=== PATIENT | male | born 1985 ===

== ENCOUNTER 2020-06-15 13:22 | Outpatient (REF) | payer OTHER, SELFPAY ==
[2020-06-15 15:56] LABS: SARS COV2 PCR INHOUSE NEGATIVE (Negative)
== END 2020-06-15 13:23 | disposition home or self-care (01) ==
LOC: HO.LAB 13:22
PROVIDERS: Visit Provider Internal Medicine
DX: Z20.822 Contact with and (suspected) exposure to COVID-19 (principal)
CPT/HCPCS: C9803; U0003

== ENCOUNTER 2020-07-06 08:56 | Outpatient (REF) | payer OTHER, SELFPAY ==
[2020-07-06 09:20] LABS: COVID-19 Test Negative (Negative); IDNOW Serial# 55D5AD1C
== END 2020-07-06 08:57 | disposition home or self-care (01) ==
LOC: HO.LAB 08:56
PROVIDERS: Visit Provider Internal Medicine
DX: Z20.822 Contact with and (suspected) exposure to COVID-19 (principal)
CPT/HCPCS: 36415; 87635; C9803

== ENCOUNTER 2020-07-23 21:03 | Emergency (ER) | payer OTHER, SELFPAY ==
--- NOTE | ~2020-07-23 | CT_ITS ---
EXAMINATION: CT ABDOMEN AND PELVIS WITH CONTRAST CLINICAL INFORMATION: Lower abdominal pain. Bloody stool. COMPARISON: None TECHNIQUE: Multidetector volumetric images were obtained from the superior aspect of the liver through the pubic symphysis following administration 85 mL of Omnipaque 350 intravenous contrast. Sagittal and coronal reformatted images were obtained on the technologist's workstation. Oral contrast: No This CT examination was performed using dose optimization techniques as appropriate, variously including the following: *Automated exposure control *Adjustment of mA and/or kV according to patient size (this includes techniques or standardized protocols for targeted exams where dose is matched to indication/reason for exam; i.e. extremities or head) *Use of iterative reconstruction technique DLP: 529 mGy-cm FINDINGS: LUNG BASES: The visualized lung bases are unremarkable. LIVER, GALLBLADDER, AND BILIARY TREE: The liver is normal in size, shape, and attenuation. There is a 1 cm cyst in segment 5 of the liver. Additional hypoattenuating lesion in segment 4A is too small to fully characterize. No biliary ductal dilatation is present. The gallbladder is contracted with no evidence of radiopaque gallstones, gallbladder wall thickening, or obvious pericholecystic inflammatory changes. PANCREAS: Unremarkable. SPLEEN: Unremarkable. ADRENAL GLANDS: Unremarkable. KIDNEYS AND URETERS: The kidneys are normal in size, shape, and attenuation. No hydronephrosis, hydroureter, or calculi seen. No perinephric stranding. BLADDER: Unremarkable. GASTROINTESTINAL TRACT: The stomach is unremarkable. Normal caliber small bowel. There is no obstruction. Normal appendix. No colonic wall thickening or acute inflammatory change. No significant diverticulosis. No free air. No free fluid. ABDOMINAL WALL: No significant hernia is appreciated. LYMPH NODES: Normal. VASCULAR: Normal caliber aorta. Retroaortic left renal vein. PELVIC VISCERA: The prostate and seminal vesicles are unremarkable. OSSEOUS STRUCTURES: No acute or suspicious osseous abnormality. Bilateral L5 pars defects with grade 2 anterolisthesis of L5 on S1. Vacuum disc phenomenon at this level with disc space narrowing. CT/CT abdomen pelvis w con IMPRESSION: No acute findings of the abdomen or pelvis. No inflammatory changes.
[2020-07-23 21:54] VITALS: BP 114/75; PULSE 64; RESP 16; TEMP 36.4; O2SAT 97; BMI 22.8
[2020-07-23 22:10] VITALS: BP 127/76; PULSE 73; RESP 16; O2SAT 98
[2020-07-23 22:14] LABS: Basophils Absolute Auto 0.1 X10*3/uL (0.0-0.2); Basophils Percent Auto 0.5 % (0-2); Eosinophils Absolute Auto 0.3 X10*3/uL (0.0-0.4); Eosinophils Percent Auto 3.4 % (0-4); Hematocrit 42.2 % (42-52); Hemoglobin 14.6 g/dl (14.0-18.0); Imm Gran Abs Auto 0.02 X10*3/uL (0.00-0.03); Imm Gran Pct Auto 0.2 % (0.0-0.4); Lymphocytes Absolute Auto 3.2 X10*3/uL (1.2-4.9); Lymphocytes Percent Auto 34.5 % (20-40); MANUAL DIFF FLAG NO; Mean Corpuscular HGB Conc 34.6 g/dl (31.0-36.0); Mean Corpuscular Hemoglobin 31.1 pg (27.0-33.0); Mean Platelet Volume 8.6 fL (9.4-12.4); Monocytes Absolute Auto 0.8 X10*3/uL (0.1-1.2); Monocytes Percent Auto 8.6 % (2-11); Neutrophils Absolute Auto 4.9 X10*3/uL (2.0-8.3); Neutrophils Percent Auto 52.8 % (45-73); Platelet Count 246 X10*3/uL (160-400); Red Blood Count 4.69 X10*6/uL (4.60-5.80); Red Cell Distribution Width 13.6 % (11.0-16.0); White Blood Count 9.2 X10*3/uL (4.8-10.8)
--- NOTE | 2020-07-23 22:26 | ED_ITS ---
HPI - Abdominal Pain General Chief Complaint: Abdominal Pain Stated Complaint: Abd Pain Time Seen by Provider: 07/23/20 22:10 Source: patient Mode of arrival: ambulatory Limitations: no limitations History of Present Illness HPI narrative: 35-year-old male who presents emergency department for evaluation of lower abdominal pain x2 weeks. Patient states that he has been having a constant lower abdominal pain, he describes the pain as feeling like ?gas moving ?in his bowels. The pain was initially mild. He states that 2 days prior the pain became severe and is 8/10 at its worst. He states over the past 2 days he has noticed loose diarrheal stools 3 times a day. States that last week he did notice some bright red blood in his bowel movements. The patient's pain was worse today so he went to [facility], he was evaluated and sent to the emergency department for evaluation. The patient states that he had similar symptoms when he was 22 years old and he had a colonoscopy which revealed a polyp and no evidence for inflammatory bowel disease. The patient has not been on antibiotics recently. He has not traveled anywhere recently. He states that he has lost 10-15 lb unintentionally over the past 2 months. The patient did have a fever 2 weeks prior and he states that he was tested for COVID-19 on 07/03/2020 and on 07/11/2020 and these tests were negative. Related Data Home Medications Medication Instructions Recorded Confirmed No Known Home Meds 07/16/20 07/16/20 Allergies Allergy/AdvReac Type Severity Reaction Status Date / Time Sulfa (Sulfonamide Allergy Unknown Hives Verified 07/23/20 21:59 Antibiotics) sulfamethoxazole Allergy Unknown HIVES Verified 07/23/20 21:59 [From BACTRIM] trimethoprim [From BACTRIM] Allergy Unknown HIVES Verified 07/23/20 21:59 Review of Systems Review of Systems Yes all other systems are reviewed and are negative Physical Exam Vital Signs: Vital Signs: Last Vital Signs Temp 97.6 F 07/23/20 21:54 Pulse 73 07/23/20 22:10 Resp 16 07/23/20 22:10 BP 127/76 07/23/20 22:10 Pulse Ox 98 07/23/20 22:10 Body Mass Index 22.8 Const: General: cooperative Nutritional Appearance: thin Orientation/consciousness: oriented to person and oriented to place Limitations: no limitations HENMT: Head: Yes normal to inspection, Yes normocephalic and Yes atraumatic Ears: external ears normal General nose exam: Normal external nose present Face and sinus: Yes normal facial exam Mouth: Normal oral and palatal mucosa present Throat: Yes posterior oropharynx normal Eyes: Periorbital: periorbital findings normal Eyelids: Yes eyelids normal Conjunctivae: conjunctivae normal Sclerae: sclerae normal Corneas: corneas normal Pupils: Equal, round and reactive pupils present Direct Ophthalmoscopy: normal light reflex Neck: Neck: Yes full ROM, Yes no lymphadenopathy, Yes no meningeal signs, Yes trachea midline and Yes supple Chest: Chest palpation & inspection: normal inspection of the chest and normal palpation of entire chest wall Resp: Effort & Inspection: normal respiratory effort and able to speak in complete sentences Auscultation: clear to auscultation bilaterally Cardio: Rate: regular rate Rhythm: regular rhythm Heart sounds: S1 normal heart sound present, S2 normal heart sound present and no murmurs GI: Inspection: Yes normal to inspection Palpation (GI): Soft to palpation, Tenderness to palpation present (GI) in the LLQ (Moderate), in the RLQ (Mild) and suprapubicly (Moderate), no guarding, not rigid and No hepatosplenomegaly present : General: Yes no CVA tenderness Back/Spine/Pelvis: Back: no CVA tenderness Cervical Spine: normal cervical lordosis Thoracic/Lumbar Spine: thoracic and lumbar spine normal to inspection Skin: Lesions: no lesions Rashes: no rashes Wounds: no wounds Neuro: General: oriented to person, oriented to place and no meningeal signs Cranial nerves: Yes CN's II-XII intact bilaterally and Yes Equal, round and reactive pupils present Cognition (Neuro): normal cognition Motor exam (neuro): 5/5 motor strength present throughout Extrem: General: Yes normal to inspection and Yes full ROM Psych: Appearance: well kempt Mental Status: mental status grossly normal Speech and movement: Normal speech and movement present Affect: normal affect Attitude: cooperative Thought process: Normal thought process present Thought content: Normal thought content present Course Course Course Narrative: 35-year-old male who presents emergency department for evaluation of 2 weeks of lower abdominal pain which became worse over the past 2 days. He has had 2 days of diarrheal stools and did have some bloody stool 1 week prior. The patient's physical examination did reveal lower abdominal tenderness greater in the left lower quadrant. Differential includes inflammatory bowel disease, infectious diarrhea, diverticulitis, kidney stone, appendicitis. I ordered a CBC, BMP, liver test, lipase, COVID-19, CT scan of the abdomen pelvis with IV contrast. His pain was treated with Toradol 30 mg IV and he was ordered to get normal saline IV x1 L. 1234: The patient's laboratory evaluation was normal with non elevated ESR and CRP. CT scan of the abdomen pelvis with IV contrast did not reveal a clear etiology for the patient's pain, no evidence of kidney stones or inflammatory bowel disease. The patient does feel better after receiving the above treatment. At this time I do not have a clear etiology for the patient's pain. Patient was advised to take Tylenol and ibuprofen for his pain. She advised to follow-up with his doctor and to return to the emergency department if his symptoms get worse or if he develops any new symptoms that are concerning to him. MDM - Abdominal Pain Lab Data Result diagrams: 07/23/20 22:07 07/23/20 22:07 Labs: Lab Results 07/23/20 07/23/20 07/23/20 Range/Units 22:07 22:07 22:07 WBC 9.2 (4.8-10.8) X10*3/uL RBC 4.69 (4.60-5.80) X10*6/uL Hgb 14.6 (14.0-18.0) g/dl Hct 42.2 (42-52) % MCV 90.0 (80-98) fL MCH 31.1 (27.0-33.0) pg MCHC 34.6 (31.0-36.0) g/dl RDW 13.6 (11.0-16.0) % Plt Count 246 (160-400) X10*3/uL MPV 8.6 L (9.4-12.4) fL Immature Gran % (Auto) 0.2 (0.0-0.4) % Neut % (Auto) 52.8 (45-73) % Lymph % (Auto) 34.5 (20-40) % [place] % (Auto) 8.6 (2-11) % Eos % (Auto) 3.4 (0-4) % Baso % (Auto) 0.5 (0-2) % Lymph # (Auto) 3.2 (1.2-4.9) X10*3/uL [place] # (Auto) 0.8 (0.1-1.2) X10*3/uL Eos # (Auto) 0.3 (0.0-0.4) X10*3/uL Baso # (Auto) 0.1 (0.0-0.2) X10*3/uL Abs Immat Gran (auto) 0.02 (0.00-0.03) X10*3/uL Absolute Neuts (auto) 4.9 (2.0-8.3) X10*3/uL Absolute Nucleated RBC 0.000 (0.0-0.012) X10*3/uL Nucleated RBC % (auto) 0.0 (0.0-0.2) /100WBC ESR (0-15) MM/HR Hold Blue Top SEE NOTE Sodium 138 (135-145) mmol/L Potassium 4.2 (3.3-5.1) mmol/L Chloride 103 (96-108) mmol/L Carbon Dioxide 28 (22-29) mmol/L Anion Gap 11 L (12-20) BUN 25 H (9-16) mg/dL Creatinine 0.96 (0.5-1.4) mg/dL Estim Creat Clear Calc 105.7 Estimated GFR > 60 Random Glucose 90 (60-115) mg/dL Calcium 9.5 (8.4-10.2) mg/dL Total Bilirubin 0.2 (0.0-1.0) mg/dL Direct Bilirubin < 0.2 (0.0-0.5) mg/dL AST 21 (5-37) U/L ALT 21 (0-40) U/L Alkaline Phosphatase 76 (39-117) U/L C-Reactive Protein 0.13 (< or = 0.50) mg/dL Total Protein 6.9 (6.5-8.0) g/dL Albumin 4.4 (3.5-5.0) g/dL Lipase 24 (8-78) U/L COVID-19 (BREANNA) (Negative) COVID-19 Clin Com 07/23/20 07/23/20 Range/Units 22:07 22:40 WBC (4.8-10.8) X10*3/uL RBC (4.60-5.80) X10*6/uL Hgb (14.0-18.0) g/dl Hct (42-52) % MCV (80-98) fL MCH (27.0-33.0) pg MCHC (31.0-36.0) g/dl RDW (11.0-16.0) % Plt Count (160-400) X10*3/uL MPV (9.4-12.4) fL Immature Gran % (Auto) (0.0-0.4) % Neut % (Auto) (45-73) % Lymph % (Auto) (20-40) % [place] % (Auto) (2-11) % Eos % (Auto) (0-4) % Baso % (Auto) (0-2) % Lymph # (Auto) (1.2-4.9) X10*3/uL [place] # (Auto) (0.1-1.2) X10*3/uL Eos # (Auto) (0.0-0.4) X10*3/uL Baso # (Auto) (0.0-0.2) X10*3/uL Abs Immat Gran (auto) (0.00-0.03) X10*3/uL Absolute Neuts (auto) (2.0-8.3) X10*3/uL Absolute Nucleated RBC (0.0-0.012) X10*3/uL Nucleated RBC % (auto) (0.0-0.2) /100WBC ESR 2 (0-15) MM/HR Hold Blue Top Sodium (135-145) mmol/L Potassium (3.3-5.1) mmol/L Chloride (96-108) mmol/L Carbon Dioxide (22-29) mmol/L Anion Gap (12-20) BUN (9-16) mg/dL Creatinine (0.5-1.4) mg/dL Estim Creat Clear Calc Estimated GFR Random Glucose (60-115) mg/dL Calcium (8.4-10.2) mg/dL Total Bilirubin (0.0-1.0) mg/dL Direct Bilirubin (0.0-0.5) mg/dL AST (5-37) U/L ALT (0-40) U/L Alkaline Phosphatase (39-117) U/L C-Reactive Protein (< or = 0.50) mg/dL Total Protein (6.5-8.0) g/dL Albumin (3.5-5.0) g/dL Lipase (8-78) U/L COVID-19 (BREANNA) Negative (Negative) COVID-19 Clin Com See Note Discharge Plan Discharge Clinical Impression: Abdominal pain Qualifiers: Abdominal location: lower abdomen, unspecified Qualified Code(s): R10.30 - Lower abdominal pain, unspecified Patient Disposition: Home, Self-Care Instructions: Abdominal Pain (ED) Additional Instructions: Your laboratory evaluation was normal which is reassuring. The CT scan of your abdomen pelvis with IV contrast did not reveal any abnormal ities to explain your pain, this is reassuring as well. Take ibuprofen 200 mg pills, 3 pills every 6 hours as needed for pain. Take Tylenol (acetaminophen) 500 mg pills, 2 pills every 4 to 6 hours as needed for pain. Follow-up with your doctor in 2 days. Please return to the emergency department if your symptoms get worse or if you develop any symptoms that are concerning to you. Prescriptions: No Action No Known Home Meds RF: 0 PMFSH Past Medical History PMFSH Narrative: The patient has no chronic medical problems, does not take med ications on a regular basis. He smokes 8 cigarettes per day times 12 years. He denies alcohol use. He smokes marijuana 2 to 3 times a day. Medical History (Updated 07/24/20 @ 00:36 by Huy Luna MD) History of colonic polyps No known health problems Social History Social History Alcohol intake: never Smoking Status: Current every day smoker Use of substances other than those prescribed or required for medical reasons: Yes Substance Use Type: Marijuana Advance Directives: No Advance Directives Information Provided: No
[2020-07-23 22:36] LABS: Anion Gap 11 (12-20); Blood Urea Nitrogen 25 mg/dL (9-16); Calcium 9.5 mg/dL (8.4-10.2); Carbon Dioxide 28 mmol/L (22-29); Chloride 103 mmol/L (96-108); Creatinine Clr Calc Pharmacy 105.7; Estimated Glomerular Filt Rate > 60; Glucose Random 90 mg/dL (60-115); Potassium 4.2 mmol/L (3.3-5.1); Sodium 138 mmol/L (135-145)
[2020-07-23] MEDS: Ketorolac Tromethamine 30 MG/ML VIAL IVPUSH (22:36)
[2020-07-23] MEDS: 0.9 % Sodium Chloride 1,000 ML 999 ML IV (22:37)
[2020-07-23 22:44] LABS: Alanine Aminotransferase 21 U/L (0-40); Albumin Level 4.4 g/dL (3.5-5.0); Alkaline Phosphatase 76 U/L (39-117); Aspartate Amino Transferase 21 U/L (5-37); Bilirubin Direct < 0.2 mg/dL (0.0-0.5); Bilirubin Total 0.2 mg/dL (0.0-1.0); C Reactive Protein 0.13 mg/dL (< or = 0.50); Lipase 24 U/L (8-78); Total Protein 6.9 g/dL (6.5-8.0)
[2020-07-23 23:01] LABS: COVID-19 Test Negative (Negative); IDNOW Serial# 9DD0AD1C
[2020-07-23 23:17] LABS: Erythrocyte Sedimentation Rate 2 MM/HR (0-15)
[2020-07-23] MEDS: iohexoL 350 MG/ML 100 ML INFUS..BTL 85 ML IV (23:22)
== END 2020-07-24 00:54 | disposition home or self-care (01) ==
PROVIDERS: Emergency Provider Emergency Medicine Emergency Medical Services; PCP Internal Medicine
DX: R10.30 Lower abdominal pain, unspecified (principal); F17.200 Nicotine dependence, unspecified, uncomplicated; F12.90 Cannabis use, unspecified, uncomplicated; Z20.822 Contact with and (suspected) exposure to COVID-19
CPT/HCPCS: 36415; 74177; 80048; 80076; 83690; 85025; 85652; 86140; 87635; 96361; 96374; 99284; J1885; Q9967

== ENCOUNTER → 2020-11-10 10:35 | Outpatient (BNVA) | payer OTHER, SELFPAY | PROVIDERS: PCP Internal Medicine; Referring Provider Internal Medicine; Visit Provider Nurse Practitioner Family ==

== ENCOUNTER 2020-12-28 10:36 | Day surgery (SDC) | payer OTHER, SELFPAY ==
[2020-12-22 14:13] VITALS: BMI 24.3
--- NOTE | 2020-12-24 14:07 | HO.ANESPROP2 ---
Documented by User: Tram Anderson NP 12/24/20 14:07 HPI - Anesthesia Eval Consult details Narrative: 35yo M for Colonoscopy PMFSH Active Problems Active Problems: All Active Problems (Updated 12/22/20 @ 13:57 by Tesha Crisostomo, JONNY) Return to work evaluation (Acute) Screening for diabetes mellitus (DM) (Acute) Screening for hypercholesterolemia (Acute) Screening for hypothyroidism (Acute) Colon polyp (Acute) Exposure to COVID-19 virus (Acute) Past Medical History Medical History History of colonic polyps Family History Family History Mother Heart disease Diabetes Father Substance use disorder Surgical History Surgical History H/O colonoscopy History of tonsillectomy Social History Social History Housing: Apartment Alcohol intake: never Patient Tobacco Use Status: Current everyday Tobacco user Tobacco use type: Cigarette Cigarettes Per Day: 5 Use of substances other than those prescribed or required for medical reasons: Yes Substance Use Type: Marijuana Advance Directives Information Provided: Yes Advance Directives on File: No Current occupational status: employed Current occupation: [employer] Allergies Allergy/AdvReac Type Severity Reaction Status Date / Time sulfamethoxazole Allergy Intermediate HIVES Verified 12/22/20 13:57 [From BACTRIM] trimethoprim [From BACTRIM] Allergy Intermediate HIVES Verified 12/22/20 13:57 Exam Exam Date and Time: December 24, 2020 1407 Height,Weight and Vital Signs: Height 5 ft 9 in Weight 74.843 kg Assessment and Plan Assessment Anesthesia Assessment: Chart Reviewed Documented by User: Myra Esteban MD 12/28/20 12:00 PMFSH Past Medical History Medical History History of colonic polyps Functional capacity: independent ambulation Family History Family History Mother Heart disease Diabetes Father Substance use disorder Family history of problems with anesthesia: No Surgical History Surgical History H/O colonoscopy History of tonsillectomy History of Problems with Anesthesia: No Social History Social History Housing: Apartment Alcohol intake: never Patient Tobacco Use Status: Current everyday Tobacco user Tobacco use type: Cigarette Cigarettes Per Day: 5 Use of substances other than those prescribed or required for medical reasons: Yes Substance Use Type: Marijuana Advance Directives Information Provided: Yes Advance Directives on File: No Current occupational status: employed Current occupation: [employer] Allergies Allergy/AdvReac Type Severity Reaction Status Date / Time sulfamethoxazole Allergy Intermediate HIVES Verified 12/22/20 13:57 [From BACTRIM] trimethoprim [From BACTRIM] Allergy Intermediate HIVES Verified 12/22/20 13:57 Exam Airway Mallampati Class: II TM Dist: >3cm Neck ROM: Full Heart: RRR Lungs: CTA Assessment and Plan Final Anesthetic Review Family History of Problems with Anesthesia: No History of Problems with Anesthesia: No
[2020-12-28 11:29] VITALS: BP 113/68; PULSE 56; RESP 18; TEMP 36.4; O2SAT 98
--- NOTE | 2020-12-28 11:34 | MHC.SHP ---
Pre-Procedural Eval Section A Date of Service: 12/28/20 Section B Chief Complaint: Rectal Bleeding Relevant Family History (Specify if Yes): No Relevant Social History: Tobacco Use Present Medications: see Short Stay Collaborative assessment Medical History: Significant History (History of colonic polyps) History of Previous Operations: Relevant previous surgery/procedure and date(s) (colonoscopy, tonsilectomy) Allergies: Allergies Allergy/AdvReac Type Severity Reaction Status Date / Time sulfamethoxazole Allergy Intermediate HIVES Verified 12/22/20 13:57 [From BACTRIM] trimethoprim [From BACTRIM] Allergy Intermediate HIVES Verified 12/22/20 13:57 Review of Systems Sugical H&P ROS: Negative: Constitution, Cardiovascular, Respiratory, Neurological, Psychiatric, Hem-Onc, Allergic/Immunologic, Gastrointestinal, Genitourinary, Musculoskeletal, Integumentary, Endocrine and Eyes/Ears/Nose/Throat Exam Surgical H&P Exam: Normal: HEENT, Normal: Heart, Normal: Lungs, Normal: Extremities, Normal: Abdomen, Normal: Skin and Normal: Neurological Plan Diagnosis/Plan: Unchanged I have reviewed the history and physical and performed a pertinent physical examination on my patient. No changes have occurred unless specified.
[2020-12-28] MEDS: Lactated Ringers 1,000 ML 100 ML IVCONT (11:44)
--- NOTE | 2020-12-28 12:13 | P.BOP_ITS ---
Brief Operative Note Date of Service: 12/28/20 Pre-op diagnosis: rectal bleeding Post-op diagnosis: same Procedure: see op note Surgeon: Terri Munoz MD Anesthesia: MAC Was an Independent Sales Representative used for this Procedure?: No Estimated blood loss (mL): 0 Condition: stable Disposition: PACU
--- NOTE | 2020-12-28 12:14 | P.OP_ITS ---
Operative Note Operative Note Date of Service: 12/28/20 Narrative: Operative Information Procedure Description: Colonoscopy COLONOSCOPY Instrument: Olympus variable stiffness pediatric scope 190L Colonoscopy Monitoring: Vital signs and clinical assessment, continuous EKG monitoring, Pulse oximetry, Carbon Dioxide monitoring and blood pressure monitoring were done throughout the procedure. Colon withdrawal time was 13 minutes. Procedure: The patient was placed in the left lateral decubitis position and pre-procedure medications were administered. After a digital rectal examination of the ano-rectum, the video colonoscope was inserted into the rectum and advanced through the colon to the cecum/TI. The colonoscope was slowly withdrawn in a retrograde panoramic fashion and the colon mucosa was carefully examined including a retroflexed view of the rectum. Findings and interventions are described below. Procedure Difficulty: easy Findings: Terminal Ileum-normal Cecum:normal Ascending Colon: normal Transverse Colon -normal Descending Colon:normal Sigmoid Colon: normal Rectum: Retroflexion with moderate sized inflammed internal hemorrhoids, grade II Anorectum - normal Colon preparation: [place] Bowel Preparation Scale Right colon; 2 Transverse colon: 2 Left colon; 2 (0 = Unprepared colon segment with mucosa not seen due to solid stool that cannot be cleared. 1 = Portion of mucosa of the colon segment seen, but other areas of the colon segment not well seen due to staining, residual stool and/or opaque liquid. 2 = Minor amount of residual staining, small fragments of stool and/or opaque liquid, but mucosa of colon segment seen well. 3 = Entire mucosa of colon segment seen well with no residual staining, small fragments of stool or opaque liquid) Impression and Post Procedure Diagnosis: internal hemorrhoids Plan: High fiber diet leaflet Avoid straining at stool, epsom salts and sitz bath, anusol supps or cream Repeat Colonoscopy aged 45 or earlier if clinically indicated Above findings were reviewed with the patient and relevant handouts were provided if indicated.
[2020-12-28 12:20] VITALS: BP 90/45; PULSE 67; RESP 12; TEMP 36.3; O2SAT 97
[2020-12-28 12:35] VITALS: BP 102/60; PULSE 67; RESP 12; TEMP 36.3; O2SAT 99
[2020-12-28 12:52] VITALS: PULSE 67; RESP 16; TEMP 36.3; O2SAT 99
--- NOTE | 2020-12-28 12:56 | HO.POSTANES ---
Post Anesthesia Evaluation Post Anesthesia Evaluation Vital Signs: Vital Signs Temp Pulse Resp BP Pulse Ox 12/28/20 12:52 97.4 F 67 16 99 12/28/20 12:35 97.4 F 67 12 102/60 99 12/28/20 12:20 97.4 F 67 12 90/45 L 97 12/28/20 11:29 97.5 F 56 18 113/68 98 Anesthesia: Monitored Mental Status: Awake Pain Control: Satisfactory Nausea/Vomiting: None Hydration: Adequate Anesthesia-Related Issues: No Anes. Related Issues
== END 2020-12-28 13:27 | disposition home or self-care (01) ==
PROVIDERS: PCP Internal Medicine; Visit Provider Internal Medicine Gastroenterology
PROC: 0DJD8ZZ Inspection of Lower Intestinal Tract, Via Natural or Artificial Opening Endoscopic (ICD-10-PCS; CPT 45378; principal; 2020-12-28 11:40)
DX: K62.5 Hemorrhage of anus and rectum (principal); K64.1 Second degree hemorrhoids; Z87.19 Personal history of other diseases of the digestive system; Z88.2 Allergy status to sulfonamides
CPT/HCPCS: 45378

== ENCOUNTER 2021-01-28 08:27 | Outpatient (REF) | payer OTHER, SELFPAY | END 2021-01-28 08:28 | disposition home or self-care (01) | LOC: HO.LAB 08:27 | PROVIDERS: Physician Assistant; PCP Internal Medicine; Visit Provider Internal Medicine | DX: Z20.822 Contact with and (suspected) exposure to COVID-19 (principal) | CPT/HCPCS: U0003; U0005 ==

== ENCOUNTER 2023-06-23 15:38 | Outpatient (AMB) | payer OTHER, SELFPAY ==
--- NOTE | 2023-06-23 15:39 | MHC.OFFWIV ---
Intake Vital Signs 06/23/23 15:41 Height 5 ft 9 in BMI Reason not done Patient refused/unable BP 122/78 Blood Pressure Location Lt brachial Position Sitting Pulse 80 Pulse Source Pulse Oximeter Temp 98.9 F Temp Source Oral Pulse Oximetry (%) 97 Oxygen Delivery Method Room Air Intake Visit Reasons: Sinus infection (Lobby) Intake Note: pt is here for c.o sinus infection, alot of mucus, and states he throws up from choking on the mucus. Patient Tobacco Use Status: Current everyday Tobacco user Allergies sulfamethoxazole [From BACTRIM] Allergy (Intermediate, Verified 06/23/23 15:41) HIVES trimethoprim [From BACTRIM] Allergy (Intermediate, Verified 06/23/23 15:41) HIVES Do you need a note to return to daycare/school/sports/work: Yes HPI HPI Comments History of Present Illness Details This is a 38-year-old male who presented to the walk-in clinic today complaining of nasal/sinus congestion, postnasal drip, chest congestion, and cough for the past 4 days. He states he started with some mild nasal/sinus congestion 4 days ago, which developed into postnasal drip, which then developed into chest congestion. He states he had an episode of coughing up a bunch of mucus/sputum causing him to choke and throw up. He actually states that he is feeling slightly better but still has some mild nasal congestion/rhinorrhea. He reports subjective low-grade fevers/chills. He denies any chest pain or shortness of breath. [facility] Medical History History of colonic polyps Surgical History H/O colonoscopy History of tonsillectomy Family History Mother Heart disease Diabetes Father Substance use disorder Throat cancer Social History Housing: Apartment Alcohol intake: never Patient Tobacco Use Status: Current everyday Tobacco user Tobacco use type: Cigarette Cigarettes Per Day: 5 e-Cigarette/Vaping Use: Never Used Substance Use Type: Marijuana Current occupational status: employed Current occupation: [employer] Review of Systems Const All systems reviewed & are unremarkable except as noted in HPI and below Reports no additional complaints Eyes Reports no additional complaints ENT Reports no additional complaints Card Reports no additional complaints Resp Reports no additional complaints GI Reports no additional complaints Reports no additional complaints Musc Reports no additional complaints Skin/Breast Reports system reviewed and no additional complaints, except as documented Neuro Reports no additional complaints Psych Reports no additional complaints Endo Reports no additional complaints Sly/Lymph Reports no additional complaints Aller/Immun Reports no additional complaints Physical Exam Vital Signs: Last Vital Signs Temp 98.9 F 06/23/23 15:41 Pulse 80 06/23/23 15:41 BP 122/78 06/23/23 15:41 Pulse Ox 97 06/23/23 15:41 Oxygen Delivery Method Room Air 06/23/23 15:41 Const Other: Vital signs reviewed. Constitutional: Non-toxic appearing. No acute distress. Well-developed and well-nourished. HEENT: Normocephalic and atraumatic. There is cerumen bilaterally but visualize tympanic membranes are within normal limits without erythema, edema, or bulging bilaterally. External auditory canals without erythema or edema bilaterally. Moist mucous membranes. He has mild posterior pharyngeal erythema with postnasal drip. Skin: Warm and dry. No rashes or lesions noted. Neck: Full and painless range of motion. No cervical lymphadenopathy. Cardio: Regular rate and rhythm. No murmurs, gallops, or rubs. No lower extremity edema. No JVD. Pulmonary: No respiratory distress. No accessory muscle usage. Clear to auscultation bilaterally without wheezing, crackles, or rhonchi. Gastrointestinal: Soft, nontender, and nondistended in all 4 quadrants. Musculoskeletal: Normal range of motion in joints throughout the body. No deformity or other signs of injury. Neuro: Alert and oriented x4. Cranial nerves 2-12 grossly intact. No focal deficits appreciated. Psych: Normal mood and affect. Results AMB Rapid Strep AMB Rapid Strep Negative Last Edit by Alvin Langley CMA on 06/23/23 15:54 Assessment & Plan Assessment & Plan (1) Acute upper respiratory infection: Code(s): J06.9 - Acute upper respiratory infection, unspecified Plan: This is a 38-year-old male who presented to the walk-in clinic complaining of nasal/sinus congestion/rhinorrhea, postnasal drip, chest congestion, and mild productive cough x4 days. Patient's physical exam is benign with the exception of mild posterior pharyngeal erythema with postnasal drip. His history and physical most consistent with an acute viral respiratory tract infection, low concern for pneumonia and streptococcal pharyngitis given physical exam findings and patient is already feeling better. Patient was reassured that this is likely a self-limiting illness. Recommended symptomatic management including rest, increased fluids, advil/tylenol for pain/fever, and over the counter throat lozenges/decongestants. Patient advised to follow up here or go to the emergency room for worsening/persistent symptoms. Patient verbalized understanding and is agreeable with the plan. Coding Level of Care Code Est Pt Level 3 (23740) Diagnoses Acute upper respiratory infection J06.9
[2023-06-23 15:41] VITALS: BP 122/78; PULSE 80; TEMP 37.2; O2SAT 97
== END 2023-06-23 16:07 | disposition home or self-care (01) ==
PROVIDERS: PCP Internal Medicine; Visit Provider Physician Assistant Medical
DX: J06.9 Acute upper respiratory infection, unspecified (principal); J02.9 Acute pharyngitis, unspecified
CPT/HCPCS: 87880; 99213

== ENCOUNTER 2023-12-30 07:53 | Emergency (ER) | payer OTHER, SELFPAY ==
[2023-12-30 08:02] VITALS: BP 128/80; PULSE 82; RESP 18; TEMP 36.6; O2SAT 99; BMI 23.7
--- NOTE | 2023-12-30 08:21 | ED.NAVMDI ---
HPI - Nausea/Vomiting/Diarrhea General Chief complaint: Abdominal Pain Stated complaint: vomitting Time Seen by Provider: 12/30/23 08:11 Source: patient and family Mode of arrival: ambulatory Limitations: no limitations History of Present Illness ED Provider: Daniella Braun PA-C HPI Narrative: 38 yo male presents to the ER for evaluation of nausea, diarrhea and lower abdominal pain for the last 3 days. States pain is across his lower abdomen, sometimes worse on the left side. He has had 3 episodes of loose, nonbloody stools for the last few days. He has not vomited but has felt nauseous. He has had decreased p.o. intake. Reports his son recently had vomiting and diarrhea a few days before his symptoms started. He reports overall his pain is improving but the diarrhea persists. No fever or chills. No urinary symptoms. No chest pain, shortness of breath, URI symptoms. MD elicited complaint: nausea, diarrhea and abdominal pain Onset (ago): day(s) (3) Description of diarrhea: watery and loose Associated nausea: Yes Associated abdominal pain: Yes Location of pain: LLQ Pain consistency: intermittent Severity: moderate Quality: cramping Exacerbating factors: eating Relieving factors: none Context: sick contacts Associated symptoms: loss of appetite, malaise, nausea/vomiting and weakness Related Data Previous Rx's ?Medication ?Instructions ?Recorded ondansetron 4 mg disintegrating 4 mg PO Q8H PRN nausea and 12/30/23 tablet vomiting #5 tabs Allergies Allergy/AdvReac Type Severity Reaction Status Date / Time sulfamethoxazole Allergy Intermediate HIVES Verified 12/30/23 08:03 [From BACTRIM] trimethoprim [From BACTRIM] Allergy Intermediate HIVES Verified 12/30/23 08:03 Review of Systems Review of Systems: Yes all other systems are reviewed and are negative Gastrointestinal: Gastrointestinal: Reports nausea PMFSH Past Medical History Medical History History of colonic polyps Surgical History H/O colonoscopy History of tonsillectomy Family History Family History Mother Heart disease Diabetes Father Substance use disorder Throat cancer Social History Social History Housing: Apartment Alcohol intake: never Patient Tobacco Use Status: Current everyday Tobacco user Tobacco use type: Cigarette Cigarettes Per Day: 5 e-Cigarette/Vaping Use: Never Used Substance Use Type: Marijuana Advance Directives: No Do you have a plan to hurt others: No Plan Current occupational status: employed Current occupation: [employer] Physical Exam Vital Signs: Vital Signs: Last Vital Signs Temp 97.8 F 12/30/23 08:02 Pulse 82 12/30/23 08:02 Resp 18 12/30/23 08:02 BP 128/80 12/30/23 08:02 Pulse Ox 99 12/30/23 08:02 O2 Del Method Room Air 12/30/23 08:02 BMI result Body Mass Index 23.7 Appearance: Alert. Oriented X3. No acute distress. Head: normocephalic, atraumatic. Eyes: Pupils equal, round and reactive to light. ENT: Pharynx normal. No tonsillar swelling or exudate. Neck: Normal inspection. Neck supple. CVS: Normal heart rate and rhythm. Pulses normal. Respiratory: No respiratory distress. Breath sounds normal. Abdomen: Soft with mild tenderness to deep palpation of the left lower quadrant. No guarding or rebound tenderness. Normal active +BS x4 Skin: Skin warm and dry. Normal skin color. Normal skin turgor. No rashes. Extremities: No lower extremity edema. No joint swelling. Neuro/psych: Oriented X 3. No motor deficit. No sensory deficit. CN II-XII intact. Normal speech and cognition. Medical Decision Making Medical Decision Making MDM Narrative: 38-year-old male presents to the ER for evaluation of nausea, lower abdominal pain and diarrhea for the last 3 days. He reports overall symptoms are improving and he had recent sick contacts to his son with similar symptoms. His abdominal exam is reassuring with mild tenderness to deep palpation only. No rebound or guarding. Not an acute abdomen. Vital signs are stable, no tachycardia or hypotension, not febrile. Lab workup today was reassuring with no leukocytosis, no signs of dehydration, no major metabolic derangement. Patient declined IV fluids, nausea medication and pain medication today. He just wanted his labs checked to make sure that ?everything was okay. ? Was tolerating p.o.. Again overall his symptoms are improving. At this time comfortable discharge home with supportive care, p.r.n. Zofran. Most likely viral gastroenteritis that is self-resolving. Return precautions were discussed. Stable for DC. Differential Diagnosis Differential Diagnoses: The differential diagnosis associated with the presentation includes Viral gastroenteritis, bacterial gastroenteritis, colitis, diverticulitis, dehydration, ISAC Admission/Observation Consideration of admission/observation: Escalation of care including admission/observation considered Lab Data MDM Lab Attestation statement: I reviewed the patient's lab results. No leukocytosis, no major metabolic derangement 12/30/23 08:34 12/30/23 08:34 Labs: Lab Results 12/30/23 Range/Units 08:34 WBC 8.2 (4.8-10.8) X10*3/uL RBC 5.16 (4.60-5.80) X10*6/uL Hgb 15.9 (14.0-18.0) g/dl Hct 45.7 (42.0-52.0) % MCV 88.6 (80.0-98.0) fL MCH 30.8 (27.0-33.0) pg MCHC 34.8 (31.0-36.0) g/dl RDW 13.5 (11.0-16.0) % Plt Count 245 (160-400) X10*3/uL MPV 8.0 L (9.4-12.4) fL Immature Gran % (Auto) 0.2 (0.0-0.4) % Neut % (Auto) 52.5 (45-73) % Lymph % (Auto) 36.7 (20-40) % [place] % (Auto) 7.8 (2-11) % Eos % (Auto) 2.2 (0-4) % Baso % (Auto) 0.6 (0-2) % Lymph # (Auto) 3.0 (1.2-4.9) X10*3/uL [place] # (Auto) 0.6 (0.1-1.2) X10*3/uL Eos # (Auto) 0.2 (0.0-0.4) X10*3/uL Baso # (Auto) 0.1 (0.0-0.2) X10*3/uL Abs Immat Gran (auto) 0.02 (0.00-0.03) X10*3/uL Absolute Neuts (auto) 4.3 (2.0-8.3) x10*3/uL Absolute Nucleated RBC 0.000 (0.0-0.012) X10*3/uL Nucleated RBC % (auto) 0.0 (0.0-0.2) /100WBC Sodium 141 (135-145) mmol/L Potassium 4.1 (3.3-5.1) mmol/L Chloride 107 (96-108) mmol/L Carbon Dioxide 28 (22-29) mmol/L Anion Gap 10 L (12-20) BUN 17 H (9-16) mg/dL Creatinine 1.03 (0.5-1.4) mg/dL Estim Creat Clear Calc 93.1 Estimated GFR > 60 Random Glucose 85 (60-115) mg/dL Calcium 9.7 (8.4-10.2) mg/dL Total Bilirubin 0.6 (0.0-1.0) mg/dL Direct Bilirubin 0.2 (0.0-0.5) mg/dL AST 21 (5-37) U/L ALT 36 (0-40) U/L Alkaline Phosphatase 60 (39-117) U/L Total Protein 7.1 (6.5-8.0) g/dL Albumin 4.4 (3.5-5.0) g/dL Lipase 23 (8-78) U/L Urine Color Yellow Urine Appearance Cloudy Urine pH 8.0 (5.0-9.0) Ur Specific [place] 1.025 (1.005-1.025) Urine Protein Negative (Neg-Trace) mg/dL Urine Glucose (UA) Negative (Negative) mg/dL Urine Ketones Negative (Negative) mg/dL Urine Blood Negative (Negative) Urine Nitrite Negative (Negative) Ur Leukocyte Esterase Negative (Negative) External Record Review External record reviewed: Prior outpatient labs Tests considered The following testing was considered but not selected: Considered CT scan of his abdomen however he is feeling better with fluids and meds, abdominal exam is reassuring so imaging deferred today Prescription Management I considered prescription management with: Pain Medication and Antibiotic Critical Care Time Critical Care Time Critical Care Time: No Discharge Plan Discharge Clinical Impression: Gastroenteritis Patient Disposition: Home, Self-Care Instructions: Gastroenteritis (DC) Additional Instructions: You lab workup today was unremarkable. Your urine test was negative for infection. You most likely have a viral GI bug also known as gastroenteritis. Treatment is supportive care, symptoms usually resolve on their own in 48-72 hours. Recommend rest and plenty of oral hydration. Stick to a bland diet like soup and toast while you are not feeling well. Take the prescribed medication as needed for nausea. Recommend over the counter Pepto Bismol or Imodium for upset stomach and diarrhea. Follow up with your doctor as needed. If you develop new or worsening symptoms call 911 or come back to the ER for further evaluation. Prescriptions: New ondansetron 4 mg tablet,disintegrating 4 mg PO Q8H PRN (Reason: nausea and vomiting) Qty: 5 0RF Referrals: Dariel,Tika Carballo MD [Primary Care Provider] - Stand Alone Forms: Work/School Release Print Language: Danish
[2023-12-30 08:38] LABS: MANUAL DIFF FLAG NO
[2023-12-30 08:39] LABS: Basophils Absolute Auto 0.1 X10*3/uL (0.0-0.2); Basophils Percent Auto 0.6 % (0-2); Eosinophils Absolute Auto 0.2 X10*3/uL (0.0-0.4); Eosinophils Percent Auto 2.2 % (0-4); Hematocrit 45.7 % (42.0-52.0); Hemoglobin 15.9 g/dl (14.0-18.0); Imm Gran Abs Auto 0.02 X10*3/uL (0.00-0.03); Imm Gran Pct Auto 0.2 % (0.0-0.4); Lymphocytes Percent Auto 36.7 % (20-40); Mean Corpuscular HGB Conc 34.8 g/dl (31.0-36.0); Mean Corpuscular Hemoglobin 30.8 pg (27.0-33.0); Mean Corpuscular Volume 88.6 fL (80.0-98.0); Monocytes Absolute Auto 0.6 X10*3/uL (0.1-1.2); Monocytes Percent Auto 7.8 % (2-11); Neutrophils Absolute Auto 4.3 x10*3/uL (2.0-8.3); Neutrophils Percent Auto 52.5 % (45-73); Platelet Count 245 X10*3/uL (160-400); Red Blood Count 5.16 X10*6/uL (4.60-5.80); Red Cell Distribution Width 13.5 % (11.0-16.0); White Blood Count 8.2 X10*3/uL (4.8-10.8)
[2023-12-30 08:40] LABS: Appearance Urine Cloudy; Color Urine Yellow; Glucose Urine UA Negative (Negative); Leukocyte Esterase Urine Negative (Negative); Nitrite Urine Negative (Negative); Specific Gravity - Urine 1.025 (1.005-1.025); Urine Blood Negative (Negative); Urine Ketones Negative (Negative); Urine Protein Negative (Neg-Trace)
[2023-12-30 08:57] LABS: Alanine Aminotransferase 36 U/L (0-40); Albumin Level 4.4 g/dL (3.5-5.0); Alkaline Phosphatase 60 U/L (39-117); Anion Gap 10 (12-20); Aspartate Amino Transferase 21 U/L (5-37); Bilirubin Direct 0.2 mg/dL (0.0-0.5); Bilirubin Total 0.6 mg/dL (0.0-1.0); Blood Urea Nitrogen 17 mg/dL (9-16); Calcium 9.7 mg/dL (8.4-10.2); Carbon Dioxide 28 mmol/L (22-29); Chloride 107 mmol/L (96-108); Creatinine Clr Calc Pharmacy 93.1; Estimated Glomerular Filt Rate > 60; Glucose Random 85 mg/dL (60-115); Lipase 23 U/L (8-78); Potassium 4.1 mmol/L (3.3-5.1); Sodium 141 mmol/L (135-145); Total Protein 7.1 g/dL (6.5-8.0)
[2023-12-30 09:05] VITALS: BP 128/80; PULSE 82; RESP 18; TEMP 36.6; O2SAT 99
== END 2023-12-30 09:09 | disposition home or self-care (01) ==
PROVIDERS: Emergency Provider Emergency Medicine; PCP Internal Medicine
DX: K52.9 Noninfective gastroenteritis and colitis, unspecified (principal); R10.30 Lower abdominal pain, unspecified; F17.210 Nicotine dependence, cigarettes, uncomplicated
CPT/HCPCS: 36415; 80048; 80076; 81003; 83690; 85025; 99282; 99283

== ENCOUNTER 2024-01-02 10:19 | Outpatient (AMB) | payer SELFPAY ==
--- NOTE | 2024-01-02 10:21 | MHC.OFFWIV ---
Intake Vital Signs 01/02/24 10:22 Height 5 ft 8 in Weight 157 lb BMI 23.9 BP 110/76 Blood Pressure Location Rt brachial Position Sitting Pulse 74 Pulse Source Pulse Oximeter Pulse Oximetry (%) 98 Oxygen Delivery Method Room Air Intake Visit Reasons: EP lower abdominal pain Intake Note: Patient here for lower abdominal pain, vomiting and diarrhea since . He went to ED and has appt w/PCP but pain has not subsided. Patient Tobacco Use Status: Current everyday Tobacco user Allergies sulfamethoxazole [From BACTRIM] Allergy (Intermediate, Verified 01/02/24 10:24) HIVES trimethoprim [From BACTRIM] Allergy (Intermediate, Verified 01/02/24 10:24) HIVES Do you need a note to return to daycare/school/sports/work: Yes HPI HPI Comments History of Present Illness Details Patient is a 38-year-old male complaining abdominal pain x 6 days. He tells me has a long history of stomach cramping and diarrhea that started when he was 22 years old. He has since had 2 colonoscopies that have only showed polyps. He tells me he has not been diagnosed with any other chronic GI illnesses; he has never tried any elimination diets. He tells me he has always had to eat small meals and has lost a lot of weight in the last few years because everything makes his stomach hurt and it gives him diarrhea. He tells me that 6 days ago, his son came home from school and was nauseous and vomiting with diarrhea. The next day, he started feeling similar and it just got worse so he went to the emergency department on December 29 and had a workup that included labs and a physical exam, he was diagnosed with a viral GI bug and sent home. No imaging was done. He states he feels like he has a little bit better but he still having sharp, shooting abdominal pain that is worse than his chronic abdominal pain. He states yesterday he was doubled over in pain and could not move. He has been unable to work for the last 6 days. His diarrhea has returned to his baseline diarrhea. He denies anything bloody or black in his diarrhea, he denies fevers or nausea or vomiting today. [facility] Medical History History of colonic polyps Surgical History H/O colonoscopy History of tonsillectomy Family History Mother Heart disease Diabetes Father Substance use disorder Throat cancer Social History Housing: Apartment Alcohol intake: never Patient Tobacco Use Status: Current everyday Tobacco user Tobacco use type: Cigarette Cigarettes Per Day: 5 e-Cigarette/Vaping Use: Never Used Substance Use Type: Marijuana Current occupational status: employed Current occupation: [employer] Review of Systems Const All systems reviewed & are unremarkable except as noted in HPI and below Physical Exam Vital Signs: Last Vital Signs Pulse 74 01/02/24 10:22 BP 110/76 01/02/24 10:22 Pulse Ox 98 01/02/24 10:22 Oxygen Delivery Method Room Air 01/02/24 10:22 BMI result Body Mass Index 23.9 Const General: cooperative, healthy appearing, comfortable, no acute distress and well developed Orientation/consciousness: patient oriented x3 Limitations: no limitations HEENT Head: Yes normal to inspection Ears: hearing grossly normal bilaterally General nose exam: Normal external nose present Face and sinus: Yes normal facial exam Eyes General: appearance normal, both eyes and all related structures Neck Neck: Yes normal visual inspection and Yes full ROM Resp Effort & Inspection: normal respiratory effort and able to speak in complete sentences Auscultation: clear to auscultation bilaterally Cardio Rate: regular rate Rhythm: regular rhythm Heart sounds: normal S1 and S2 GI Inspection: Yes normal to inspection Palpation (GI): Soft to palpation and Tenderness to palpation present (GI) in the epigastrum, in the RUQ and Lal's sign positive Skin General skin exam: no rashes or lesions noted Neuro General: patient oriented x3 Extrem General: Yes normal to inspection Assessment & Plan Assessment & Plan (1) RUQ abdominal pain: Code(s): R10.11 - Right upper quadrant pain Plan: Vital signs are stable patient is well-appearing, physical exam revealed positive Lal's and epigastric pain. Patient has an appointment with his PCP in 2 days. Messaged his PCP to see if he wants to order an ultrasound today. Recommended if this pain gets worse he should return to the emergency department. Sent Renee to his pharmacy. Wrote work note from 12/27 through 01/03 Plan See above Medications: New dicyclomine 20 mg PO TID PRN 14 tabs 0RF abdominal pain Coding Level of Care Code Est Pt Level 4 (41384) Diagnoses RUQ abdominal pain R10.11
[2024-01-02 10:22] VITALS: BP 110/76; PULSE 74; O2SAT 98; BMI 23.9
== END 2024-01-02 11:06 | disposition home or self-care (01) ==
PROVIDERS: PCP Internal Medicine; Visit Provider Physician Assistant
DX: R10.11 Right upper quadrant pain (principal)

== ENCOUNTER → 2024-01-02 10:19 | Outpatient (BNVA) | payer OTHER, SELFPAY | PROVIDERS: PCP Internal Medicine; Visit Provider Physician Assistant | DX: R10.11 Right upper quadrant pain (principal) | CPT/HCPCS: 99212 ==

== ENCOUNTER → 2024-01-04 15:33 | Outpatient (BNVA) | payer OTHER, SELFPAY | PROVIDERS: PCP Physician Assistant; Visit Provider Internal Medicine ==

== ENCOUNTER 2024-02-16 09:49 | Outpatient (REF) | payer OTHER, SELFPAY ==
[2024-02-16 12:50] LABS: TSH reflex Free T4 1.24 uIU/mL (0.32-4.0)
[2024-02-16 12:56] LABS: HBS Num1 4.87 mIU/mL (0-7.99); HBc Num1 0.21 S/CO (0.00-0.79); HBsAGNum1 0.38 S/CO (0.00-0.99); HIV AB/AG Nonreactive (Nonreactive); HIV Num 1 0.05 S/CO (0.00-0.99); Hepatitis A Antibody IgM 0.13 Index (0-0.79); Hepatitis B Core Antibody Nonreactive (Nonreactive); Hepatitis B Surface Antigen Negative (Negative); ~HepC Num1 0.08 S/CO (0.00-0.79); ~Hepatitis A Antibody IgM Nonreactive (Nonreactive); ~Hepatitis B Surface Antibody NONREACTIVE (Nonreactive); ~Hepatitis C Antibody Nonreactive (Nonreactive)
[2024-02-16 13:13] LABS: Folate 11.8 ng/mL (> or = 4.0); Vitamin B12 736 pg/mL (200-900)
[2024-02-19 22:33] LABS: Transglutaminase IgA <1.0 U/mL
[2024-02-21 10:27] LABS: H Pylori Breath Test Positive (Negative)
[2024-02-22 12:18] LABS: Vitamin D 25-OH, D2 <4 ng/mL; Vitamin D 25-OH, D3 28 ng/mL; Vitamin D 25-OH, Total 28 ng/mL (30-100)
== END 2024-02-16 09:50 | disposition home or self-care (01) ==
LOC: HO.LAB 09:49
PROVIDERS: PCP Internal Medicine; Visit Provider Nurse Practitioner Family
DX: R10.11 Right upper quadrant pain (principal); K59.00 Constipation, unspecified; R79.89 Other specified abnormal findings of blood chemistry; E55.9 Vitamin D deficiency, unspecified; K21.9 Gastro-esophageal reflux disease without esophagitis; K64.8 Other hemorrhoids; R14.0 Abdominal distension (gaseous); R10.13 Epigastric pain; K52.9 Noninfective gastroenteritis and colitis, unspecified
CPT/HCPCS: 36415; 82306; 82607; 82746; 83013; 84443; 86003; 86364; 86704; 86706; 86709; 86803; 87340; 87389; 99202

== ENCOUNTER 2024-02-16 09:49 | Outpatient (AMB) | payer OTHER, SELFPAY ==
[2024-02-16 09:55] VITALS: BP 124/70; PULSE 66; O2SAT 98; BMI 24.9
--- NOTE | 2024-02-16 09:55 | A.OFFVIS_ITS ---
Vital Signs 02/16/24 09:55 Height 5 ft 8 in Weight 163 lb 9.328 oz BMI 24.9 BP 124/70 Blood Pressure Location Rt brachial Position Sitting Pulse 66 Pulse Source Pulse Oximeter Pulse Oximetry (%) 98 Oxygen Delivery Method Room Air Intake Visit Reasons: Abdominal Pain Intake Note: NEW PATIENT Yefri presents in office today for a scheduled initial assessment. Prior hx of colo/egd? 2020, colonoscopy. Pt cannot recall where this was done. No prior hx of EGD. Meds reviewed? Yes. Pt not ACTIVELY taking any Rx due to insurance conflict. Allergies reviewed? Yes Any significant concerns or questions? Abd pain. Pt has been having intermittent episodes of diarrhea and constipation. Pt also reports bloating and abd distention. Pharmacy verified? [facility] 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 Patient denies having any episodes since. Patient reports that he moves his bowels normally does not have symptoms of constipation. Denies melena, hematochezia, unintentional weight loss or ribbon like stools. Patient reports to have a history of polyps in the past. He does not know the results of biopsy. Patient will try to call the hospital to get the information. Screen for colon cancer History of polyps in the past. Unknown type. Patient denies any issues with sedation in the past. No known history of sleep apnea. Not on any anticoagulation medication. Patient denies any infectious diseases in the past or present. Patient denies any GI, respiratory or cardiac symptoms except for rectal bleed in August. We will schedule him for colonoscopy to screen for polyps, colorectal cancer, IBD. Patient is agreeable to plan of care and verbalizes understanding of instructions. He was given the opportunity to ask questions and all questions answered. ? Thank you for allowing me to participate in his care Plan Medications New bisacodyl (Dulcolax (bisacodyl)) take 2 tabs at noon the day before your colonoscopy 10 mg (2 x 5 mg) PO ONCE 1 day 2 tabs 0RF Z12.11 polyethylene glycol 3350 (Miralax) As directed by gastroenterology department at [facility] 238 grams PO ONCE 238 grams 0RF Z12.11 COLONOSCOPY SCREENING 12/28/[address] DRISCOLL Findings: Terminal Ileum-normal Cecum:normal Ascending Colon: normal Transverse Colon -normal Descending Colon:normal Sigmoid Colon: normal Rectum: Retroflexion with moderate sized inflammed internal hemorrhoids, grade II Anorectum - normal Colon preparation: Flint Bowel Preparation Scale Right colon; 2 Transverse colon: 2 Left colon; 2 (0 = Unprepared colon segment with mucosa not seen due to solid stool that cannot be cleared. 1 = Portion of mucosa of the colon segment seen, but other areas of the colon segment not well seen due to staining, residual stool and/or opaque liquid. 2 = Minor amount of residual staining, small fragments of stool and/or opaque liquid, but mucosa of colon segment seen well. 3 = Entire mucosa of colon segment seen well with no residual staining, small fragments of stool or opaque liquid) Impression and Post Procedure Diagnosis: internal hemorrhoids Plan: High fiber diet leaflet Avoid straining at stool, epsom salts and sitz bath, anusol supps or cream Repeat Colonoscopy aged 45 or earlier if clinically indicated TODAY'S VISIT Patient is here today for requested visit. Seen back in October of 2020 for rectal bleed sent for colonoscopy. Normal colonoscopy was found with large swollen hemorrhoids. Patient reports that he does not have bleeding with bowel movements, however he reports that his symptoms are on and off diarrhea and constipation. Depending on what he eats he might have loose stools and then will be constipated for couple of days. Patient denies any nausea or vomiting. Patient does admit that he was unable to see a doctor as he was homeless for a while and did not have health insurance. Patient reports that his symptoms of abdominal bloating, cramping and occasional diarrhea followed by constipation for few days have been going on on enough his whole life. Previously it was not so severe now he having more abdominal bloating and cramping patient denies any melena, hematochezia, unintentional weight loss or ribbon like stools. Patient reports occasional dyspepsia without dysphagia or odynophagia [facility] Medical History History of colonic polyps Surgical History H/O colonoscopy History of tonsillectomy Family History Mother Heart disease Diabetes Father Substance use disorder Throat cancer Social History Housing: Apartment Alcohol intake: never Patient Tobacco Use Status: Current everyday Tobacco user Tobacco use type: Cigarette Cigarettes Per Day: 5 e-Cigarette/Vaping Use: Never Used Substance Use Type: Marijuana Current occupational status: employed Current occupation: [employer] Review of Systems Const Denies weight gain and Denies weight loss ENT Reports no additional complaints, Denies dysphagia and Denies odynophagia Card Reports no additional complaints Resp Reports no additional complaints GI Denies abdominal pain, Denies belching, Denies melena, Reports bloating, Denies change in bowel habits, Reports constipation, Denies dysphagia, Denies excessive flatus, Reports dyspepsia, Reports heartburn, Denies diarrhea, Reports loose stools, Denies nausea, Denies odynophagia and Denies vomiting Reports no additional complaints Musc Reports no additional complaints Neuro Reports no additional complaints Psych Reports no additional complaints Endo Reports no additional complaints Physical Exam Vital Signs: Last Vital Signs Pulse 66 02/16/24 09:55 BP 124/70 02/16/24 09:55 Pulse Ox 98 02/16/24 09:55 Oxygen Delivery Method Room Air 02/16/24 09:55 BMI result Body Mass Index 24.9 Const General: healthy appearing, no acute distress and well developed Nutritional Appearance: well nourished Orientation/consciousness: patient oriented x3 Resp Effort & Inspection: normal respiratory effort, able to speak in complete sentences, no tracheal deviation and symmetric chest movement Auscultation: clear to auscultation bilaterally Cardio Rate: regular rate GI Inspection: Yes normal to inspection and No distended Palpation (GI): Soft to palpation, not firm, nontender and No hepatosplenomegaly present Auscultation: normal bowel sounds General: Yes no CVA tenderness Back/Spine/Pelvis Back: no CVA tenderness Skin General skin exam: elasticity normal, turgor normal and dry skin Neuro General: patient oriented x3 Psych Appearance: grossly normal Mental Status: mental status grossly normal Assessment & Plan Assessment & Plan (1) RUQ abdominal pain: Code(s): R10.11 - Right upper quadrant pain Category: Medical (2) Internal hemorrhoid: Code(s): K64.8 - Other hemorrhoids Category: Medical (3) Postprandial abdominal bloating: Code(s): R14.0 - Abdominal distension (gaseous) (4) Postprandial epigastric pain: Code(s): R10.13 - Epigastric pain (5) Postprandial diarrhea: Code(s): K52.9 - Noninfective gastroenteritis and colitis, unspecified (6) GERD (gastroesophageal reflux disease): Code(s): K21.9 - Gastro-esophageal reflux disease without esophagitis Qualifiers: Esophagitis presence: esophagitis presence not specified Qualified Code(s): K21.9 - Gastro-esophageal reflux disease without esophagitis Plan Low-dose PPIs started this day. Patient will get H pylori testing done today and will treat empirically if positive. Possible upper endoscopy symptoms persists. Patient was encouraged to avoid dietary triggers and late night snacking. Staying upright for minimum 3 hours after meals discussed with patient. Check for celiac disease, hepatitis profile, HIV, vitamin B12, folate, vitamin-D levels as well as thyroid study. Patient will return in the office in 3 months, sooner on as needed basis. He is agreeable to this plan and verbalizes understanding of instructions. He was given the opportunity to ask questions and all questions answered. Orders: Orders TSH reflex Free T4 Today K59.00 - Constipation, unspecified Transglutaminase IgA Today R10.9 - Unspecified abdominal pain H Pylori Breath Test Today K21.9 - Gastro-esophageal reflux disease without esophagitis Hepatitis A,B,C Profile Today R79.89 - Other specified abnormal findings of blood chemistry HIV Ab/Ag Today R79.89 - Other specified abnormal findings of blood chemistry Vitamin B12 and Folate Today R19.7 - Diarrhea, unspecified Vitamin D 25-OH (D2 and D3) Today E55.9 - Vitamin D deficiency, unspecified Medications: New esomeprazole magnesium (Nexium 24HR) 20 mg PO DAILY 30 tabs 2RF Coding Level of Care Code New Pt Level 4 (21950) Diagnoses RUQ abdominal pain R10.11 Internal hemorrhoid K64.8 Postprandial abdominal bloating R14.0 Postprandial epigastric pain R10.13 Postprandial diarrhea K52.9 Gastroesophageal reflux disease, unspecified whether esophagitis present K21.9 Esophagitis presence: esophagitis presence not specified Time Spent (min) 45 Comment 30 minutes spent with patient and additional 15 minutes spent reviewing his records
== END 2024-02-16 11:04 | disposition home or self-care (01) ==
PROVIDERS: PCP Physician Assistant; Visit Provider Nurse Practitioner Family
DX: R10.11 Right upper quadrant pain (principal); K64.8 Other hemorrhoids; R14.0 Abdominal distension (gaseous); R10.13 Epigastric pain; K52.9 Noninfective gastroenteritis and colitis, unspecified; K21.9 Gastro-esophageal reflux disease without esophagitis
CPT/HCPCS: 99204